=== PATIENT | female | born 1955 | race Caucasian/White ===

== ENCOUNTER 2017-12-07 11:14 | Day surgery (SDC) | payer OTHER ==
[2017-12-07] MEDS ORDERED: ATROPINE 1 MG/10 ML SYRINGE (14:01)
[2017-12-07] MEDS ORDERED: FENTAnyl 50 MCG/ML VIAL (14:02)
[2017-12-07] MEDS ORDERED: MIDAZOLAM 1 MG/ML 2 ML INJ (14:02)
== END 2017-12-07 14:34 | disposition home or self-care (01) ==
LOC: GIL 11:14
DX: K92.1 Melena (principal); K57.90 Diverticulosis of intestine, part unspecified, without perforation or abscess without bleeding; K64.8 Other hemorrhoids; E11.9 Type 2 diabetes mellitus without complications
CPT/HCPCS: 45378